=== PATIENT | female | born 1995 | race Two or more races ===

== ENCOUNTER 2024-08-14 09:36 | Outpatient (CLI) | payer OTHER | END 2024-08-14 09:38 | disposition home or self-care (01) | LOC: PRENATAL 09:36 | PROVIDERS: ATTEND Obstetrics & Gynecology Maternal & Fetal Medicine | DX: O36.80X0 Pregnancy with inconclusive fetal viability, not applicable or unspecified (principal); Z36.82 Encounter for antenatal screening for nuchal translucency; Z36.9 Encounter for antenatal screening, unspecified; Z14.8 Genetic carrier of other disease; O99.210 Obesity complicating pregnancy, unspecified trimester; Z3A.13 13 weeks gestation of pregnancy ==

== ENCOUNTER → 2024-10-01 08:21 | Outpatient (CLI) | payer OTHER | END | disposition home or self-care (01) | LOC: PRENATAL 08:21 | PROVIDERS: ATTEND Obstetrics & Gynecology Maternal & Fetal Medicine | DX: O44.00 Complete placenta previa NOS or without hemorrhage, unspecified trimester (principal); O10.019 Pre-existing essential hypertension complicating pregnancy, unspecified trimester; O99.210 Obesity complicating pregnancy, unspecified trimester; Z3A.21 21 weeks gestation of pregnancy ==

== ENCOUNTER 2024-11-19 13:19 | Outpatient (CLI) | payer OTHER | END 2024-11-19 13:20 | disposition home or self-care (01) | LOC: PRENATAL 13:19 | PROVIDERS: ATTEND Obstetrics & Gynecology Maternal & Fetal Medicine | DX: O26.849 Uterine size-date discrepancy, unspecified trimester (principal); O99.210 Obesity complicating pregnancy, unspecified trimester; O10.019 Pre-existing essential hypertension complicating pregnancy, unspecified trimester; Z3A.28 28 weeks gestation of pregnancy ==

== ENCOUNTER 2025-01-06 09:21 | Outpatient (CLI) | payer OTHER | END 2025-01-06 09:23 | disposition home or self-care (01) | LOC: PRENATAL 09:21 | PROVIDERS: ATTEND Obstetrics & Gynecology Maternal & Fetal Medicine | DX: O26.849 Uterine size-date discrepancy, unspecified trimester (principal); O99.210 Obesity complicating pregnancy, unspecified trimester; O10.019 Pre-existing essential hypertension complicating pregnancy, unspecified trimester; O24.419 Gestational diabetes mellitus in pregnancy, unspecified control; Z3A.35 35 weeks gestation of pregnancy ==

== ENCOUNTER 2025-02-10 14:00 | Inpatient (IN) | payer OTHER ==
[~2025-02-10] VITALS: Ht 165.1 cm; Wt 3.6 kg
[2025-02-10 15:36] LABS: URINE APPEARANCE Cloudy; URINE BILIRRUBIN Negative (NEGATIVE); URINE BLOOD Moderate; URINE COLOR Dark Yellow; URINE GLUCOSE Negative (NEGATIVE); URINE KETONE 15 (NEGATIVE); URINE LEUKOCYTE Moderate; URINE NITRATE Negative; URINE PROTEIN 30 (NEGATIVE)
[2025-02-10 15:37] LABS: URINE CAST 1.61 uL (0.0-1.40); URINE RBC 183.2 uL (0.0-20.8); URINE WBC 349.5 uL (0.0-23.2)
[2025-02-10 15:50] LABS: HEMATOCRIT 37.5 % (36.0-45.00); HEMOGLOBIN 12.1 g/dL (12.0-15.00); MEAN CELL VOLUME 73.7 fL (80.00-100.00); MEAN CORPUSCULAR HEMOGLOBIN 23.8 pg (27.00-32.0); MEAN CORPUSCULAR HGB CONC 32.3 g/dl (32.0-36.0); PLATELET COUNT 368 K/uL (150-450); RED BLOOD COUNT 5.08 M/uL (4.00-6.00); RED CELL DISTRIBUTION WIDTH 16.2 % (11.5-14.5)
[2025-02-10 15:56] LABS: INR 0.95; PARTIAL THROMBOPLASTIN TIME 26.1 SECONDS (22.0-34.0); PROTHROMBIN TIME 10.4 SECONDS (9.0-11.5)
[2025-02-10 16:09] LABS: URINE MUCUS MODERATE
[2025-02-10 16:11] LABS: ALBUMIN 3.1 gm/dL (3.4-5.0); BILIRUBIN TOTAL 0.59 mg/dL (0.3-1.2); CALCIUM 8.8 mg/dL (8.5-10.1); CREATININE SERUM 0.54 mg/dL (0.55-1.02); GFR 135.42; GLOBULINA 3.9 G/DL (2.4-3.5); POTASSIUM 4.05 mEq/L (3.5-5.1)
[2025-02-11] MEDS ORDERED: PRENATAL VITAM1 EAC5 PO (18:46)
[2025-02-16 07:24] VITALS: BP 128/82
[2025-02-16] MEDS ORDERED: RINGERS SOLUTION,LACTATED 1,000 ML IV SCH (08:00)
[2025-02-16 08:11] LABS: HEMATOCRIT 35.9 % (36.0-45.00); HEMOGLOBIN 11.6 g/dL (12.0-15.00); MEAN CELL VOLUME 74.3 fL (80.00-100.00); MEAN CORPUSCULAR HGB CONC 32.3 g/dl (32.0-36.0); PLATELET COUNT 325 K/uL (150-450); RED BLOOD COUNT 4.83 M/uL (4.00-6.00); RED CELL DISTRIBUTION WIDTH 16.4 % (11.5-14.5)
[2025-02-16 09:03] LABS: ALBUMIN 3.1 gm/dL (3.4-5.0); BILIRUBIN TOTAL 0.43 mg/dL (0.3-1.2); CALCIUM 9.3 mg/dL (8.5-10.1); CREATININE SERUM 0.47 mg/dL (0.55-1.02); GFR 158.95; GLOBULINA 3.8 G/DL (2.4-3.5); POTASSIUM 4.37 mEq/L (3.5-5.1); TOTAL PROTEIN 6.9 gm/dL (6.4-8.2)
[2025-02-16] MEDS ORDERED: MISOPROSTOL 25 MCG/4 ML GEL.W.APPL VAG ONE ×3 (10:45→19:30)
[2025-02-16 11:37] VITALS: BP 102/52
[2025-02-16] MEDS ORDERED: MISOPROSTOL 25 MCG/4 ML GEL.W.APPL ONE ×2 (14:43→19:17)
[2025-02-16 15:40] VITALS: BP 132/69
[2025-02-16 19:21] VITALS: BP 140/80
[2025-02-16 23:16] VITALS: BP 120/66
[2025-02-17 03:32] VITALS: BP 117/65
[2025-02-17 07:17] VITALS: BP 133/65
[2025-02-17] MEDS ORDERED: OXYTOCIN 500 ML IV SCH (08:30)
[2025-02-17 12:24] VITALS: BP 143/78
[2025-02-17] MEDS ORDERED: ACETAMINOPHEN 500 MG GEL..CAP PO ONE (12:30)
[2025-02-17] MEDS ORDERED: CEFAZOLIN SODIUM 1,000 MG VIAL IV NR (15:15)
[2025-02-17 15:24] VITALS: BP 124/77
[2025-02-17] MEDS ORDERED: ERYTHROMYCIN BASE OPHT 1GM EACH TUBE OP ONE (16:11)
[2025-02-17] MEDS ORDERED: OXYTOCIN 10 UNITS/ML VIAL ONE ×2 (16:11→20:02)
[2025-02-17] MEDS ORDERED: CLINDAMYCIN PHOSPHATE 150 MG/ML (900mg) IV NR (16:30)
[2025-02-17] MEDS ORDERED: KETOROLAC TROMETHAMINE 30 MG VIAL IV PRN (16:45)
[2025-02-17] MEDS ORDERED: OXYTOCIN 1,000 ML IV SCH (16:45)
[2025-02-17] MEDS ORDERED: MORPHINE SULFATE 4 MG/ML CARTRIDGE IV PRN (16:45)
[2025-02-17] MEDS ORDERED: PROMETHAZINE HCL 25 MG/ML AMPUL IV PRN (16:45)
[2025-02-17 21:21] VITALS: BP 110/74
[2025-02-18] VITALS: BP 122/75
[2025-02-18 00:08] LABS: MEAN CELL VOLUME 74.7 fL (80.00-100.00); MEAN CORPUSCULAR HEMOGLOBIN 24.2 pg (27.00-32.0); MEAN CORPUSCULAR HGB CONC 32.4 g/dl (32.0-36.0); PLATELET COUNT 309 K/uL (150-450); RED BLOOD COUNT 4.55 M/uL (4.00-6.00); RED CELL DISTRIBUTION WIDTH 16.3 % (11.5-14.5)
[2025-02-18] MEDS ORDERED: OxyCODONE HCL/APAP UD (PERCOCET) PO PRN (07:00)
[2025-02-18] MEDS ORDERED: IBUprofen 800 MG TABLET PO PRN (07:00)
[2025-02-18 07:42] VITALS: BP 125/83
[2025-02-18] MEDS ORDERED: SIMETHICONE 125 MG CAPSULE PO SCH (09:00)
[2025-02-18] MEDS ORDERED: DOCUSATE SODIUM 100MG CAP PO SCH (09:00)
[2025-02-18 17:01] VITALS: BP 118/78
[2025-02-18 23:48] VITALS: BP 121/81
[2025-02-19 08:00] VITALS: BP 119/79
== END 2025-02-19 16:40 | disposition home or self-care (01) | DRG 787 ==
LOC: LDR 02-16 06:21 → OB/GYN 02-17 14:00 → O/R 02-17 16:26 → OB/GYN 02-17 18:51
PROVIDERS: Obstetrics & Gynecology; ADMIT Student in an Organized Health Care Education/Training Program; ATTEND Student in an Organized Health Care Education/Training Program
PROC: 4A1HXCZ Monitoring of Products of Conception, Cardiac Rate, External Approach (ICD-10-PCS; 2025-02-16)
PROC: 3E0P7VZ Introduction of Hormone into Female Reproductive, Via Natural or Artificial Opening (ICD-10-PCS; 2025-02-16)
PROC: 3E033VJ Introduction of Other Hormone into Peripheral Vein, Percutaneous Approach (ICD-10-PCS; 2025-02-17)
PROC: 10D00Z1 Extraction of Products of Conception, Low, Open Approach (ICD-10-PCS; principal; 2025-02-17 17:30)
DX: O62.1 Secondary uterine inertia (principal); O10.02 Pre-existing essential hypertension complicating childbirth; O99.214 Obesity complicating childbirth; E66.9 Obesity, unspecified; O24.420 Gestational diabetes mellitus in childbirth, diet controlled; Z3A.40 40 weeks gestation of pregnancy; Z37.0 Single live birth

== ENCOUNTER 2025-02-11 17:11 | Outpatient (CLI) | payer OTHER ==
[2025-02-11 17:25] VITALS: BP 122/80
[2025-02-11 18:15] LABS: URINE APPEARANCE Cloudy; URINE BILIRRUBIN Negative (NEGATIVE); URINE BLOOD Moderate; URINE COLOR Yellow; URINE KETONE Negative (NEGATIVE); URINE LEUKOCYTE Moderate; URINE NITRATE Negative; URINE PROTEIN 30 (NEGATIVE)
[2025-02-11 18:18] LABS: URINE BACTERIA 8205.2 uL (0.0-1933); URINE CAST 2.35 uL (0.0-1.40); URINE EPITHELIAL CELLS 82.3 uL (0.0-38.8); URINE RBC 80.4 uL (0.0-20.8); URINE WBC 400.8 uL (0.0-23.2)
[2025-02-11 18:34] LABS: HEMATOCRIT 32.6 % (36.0-45.00); HEMOGLOBIN 10.8 g/dL (12.0-15.00); MEAN CELL VOLUME 74.5 fL (80.00-100.00); MEAN CORPUSCULAR HEMOGLOBIN 24.6 pg (27.00-32.0); PLATELET COUNT 332 K/uL (150-450); RED BLOOD COUNT 4.38 M/uL (4.00-6.00); RED CELL DISTRIBUTION WIDTH 15.9 % (11.5-14.5)
[2025-02-11 18:35] LABS: URINE GLUCOSE 100 MG/DL (NEGATIVE); URINE YEAST FEW /hpf
[2025-02-11] MEDS ORDERED: PRENATAL VITAM1 EAC5 PO (18:46)
[2025-02-11 18:49] LABS: INR 0.94; PARTIAL THROMBOPLASTIN TIME 25.9 SECONDS (22.0-34.0); PROTHROMBIN TIME 10.3 SECONDS (9.0-11.5)
[2025-02-11 18:51] LABS: ALBUMIN 2.9 gm/dL (3.4-5.0); BILIRUBIN TOTAL 0.36 mg/dL (0.3-1.2); CALCIUM 8.6 mg/dL (8.5-10.1); CREATININE SERUM 0.54 mg/dL (0.55-1.02); GFR 135.42; GLOBULINA 3.4 G/DL (2.4-3.5); POTASSIUM 4.31 mEq/L (3.5-5.1); TOTAL PROTEIN 6.3 gm/dL (6.4-8.2)
[2025-02-11 20:00] VITALS: BP 101/63
[2025-02-11] MEDS ORDERED: RINGERS SOLUTION,LACTATED 1,000 ML IV SCH (23:15)
[2025-02-11 23:40] VITALS: BP 128/83
[2025-02-12 03:44] VITALS: BP 120/84; O2SAT 98
[2025-02-12 08:29] VITALS: BP 109/79
[2025-02-12 12:07] VITALS: BP 128/78
[2025-02-12 16:02] VITALS: BP 124/79
[2025-02-12 16:30] VITALS: BP 124/79
[2025-02-12 16:46] VITALS: BP 124/79
== END 2025-02-12 16:51 | disposition home or self-care (01) ==
LOC: OBS/DEL 17:11
PROVIDERS: ATTEND Obstetrics & Gynecology
DX: O26.893 Other specified pregnancy related conditions, third trimester (principal); Z3A.39 39 weeks gestation of pregnancy